=== PATIENT | female | born 1935 | race Caucasian/White ===

== ENCOUNTER 2022-12-16 07:56 | Day surgery (SDC) | payer OTHER ==
--- NOTE | 2022-12-15 14:38 | RAD REPORT ---
EXAM DESCRIPTION: Lakisha Alonzo (2 Views)12/15/2022 2:29 pm CLINICAL HISTORY: Preop for breast surgery. Hypertension COMPARISON: 2018 FINDINGS: The lungs appear clear of acute infiltrate. The heart is probably borderline enlarged IMPRESSION: No acute abnormalities displayed
[2022-12-15 14:48] LABS: Absolute Lymphocytes (CBC) 1.5 K/uL (0.7-4.9); Hematocrit 37.4 % (36.0-45.0); Lymphocytes % 25.4 % (15.3-44.8); MCV 89.8 fL (80-100); MPV 7.2 fL (7.6-11.3); RBC Red Blood Cell Count 4.17 M/uL (3.86-4.86)
[2022-12-16] MEDS ORDERED: BUPIVACAINE 0.5% PF 10 ML VIAL ONE (08:21)
[2022-12-16] MEDS ORDERED: Ringers Lactate 1,000 ML IV ONE (08:30)
[2022-12-16] MEDS ORDERED: CEFAZOLIN SODIUM 2 GM/VIAL ONE (08:30)
[2022-12-16] MEDS ORDERED: METHYLENE BLUE 1% 10 ML VIAL ONE (08:53)
[2022-12-16] MEDS ORDERED: ONDANSETRON 4 MG/2 ML VIAL ONE (09:15)
[2022-12-16] MEDS ORDERED: FENTANYL CITR 100 MCG/2 ML ONE (09:15)
[2022-12-16] MEDS ORDERED: dexAMETHasone 4 MG/ML VIAL ONE (09:15)
[2022-12-16] MEDS ORDERED: propofoL 200 MG/20 ML VIAL IV ONE (09:15)
[2022-12-16] MEDS ORDERED: LIDOCAINE 2% MPF 5 ML VIAL ONE (09:17)
--- NOTE | 2022-12-16 10:04 | P.OP ---
Date of Service: 12/16/22 Preop diagnosis: Infected mass left anterior chest Postop diagnosis: Same Procedure performed: Wide excision left anterior chest mass 5 x 3 cm with layered closure Surgeon: Kristopher Taylor MD Liner Helper: None Estimated blood loss: Minimal Specimen: Pus for [employer] and sebaceous cyst inflamed Findings: As above Anesthesia: General Complications: None Drains: None Fluids and blood products: Nonapplicable Disposition: Recovery room Operative note: Patient brought to the OR and placed in supine position. General anesthesia begun. Patient prepped and draped in the usual sterile fashion. Marcaine 0.5% infiltrated locally. 15 blade used to make a 5 x 3 cm incision to excise this inflamed mass that was present on the left anterior chest. Subcutaneous tissue divided. Entire mass and cyst wall excised down through the deep subcutaneous tissue. Bleeding controlled with cautery. Cyst and minimal pus cultured and sent to pathology. Flaps created. 2-0 chromic and 0 chromic used to reapproximate subcutaneous tissue. 3-0 nylon used to close skin loosely. Sterile dressing applied. Patient awakened and taken to recovery room in good general condition. CC: Dr. Byrd's office
[2022-12-16 11:12] VITALS: BP 138/73; TEMP 97.4; O2SAT 97
== END 2022-12-16 11:37 | disposition home or self-care (01) ==
LOC: OR 07:56
PROVIDERS: ATTEND Surgery
PROC: 0JB60ZZ Excision of Chest Subcutaneous Tissue and Fascia, Open Approach (ICD-10-PCS; principal; 2022-12-16 09:00)
DX: L72.0 Epidermal cyst (principal); I10 Essential (primary) hypertension; E11.9 Type 2 diabetes mellitus without complications; E03.9 Hypothyroidism, unspecified; E66.9 Obesity, unspecified; K21.9 Gastro-esophageal reflux disease without esophagitis; G20 Parkinson's disease; I48.91 Unspecified atrial fibrillation; F32.A Depression, unspecified; Z85.51 Personal history of malignant neoplasm of bladder
CPT/HCPCS: 93005; 87070; 85025; 80048; 36415; 87205; 88305; 87075; 71046; 11406; J2704; J1100; J2001; J3010; J2405; J7120; 88304